=== PATIENT | female | born 1965 | race African-American/Black ===

== ENCOUNTER 2024-06-29 16:55 | Emergency (ER) | payer SELFPAY ==
[~2024-06-29] VITALS: Ht 157.5 cm; Wt 85.0 kg
[2024-06-29 17:02] VITALS: TEMP 98.6
[2024-06-29 19:44] LABS: BASO % 0.5 % (0.0-2.0); EOS # 0.2 K/mm3 (0.0-0.7); EOS % 3.8 % (0.0-4.0); GRAN # 3.2 K/mm3 (1.4-6.5); GRAN % 49.7 % (42.2-75.2); HEMATOCRIT 41.9 % (37.0-47.0); HEMOGLOBIN 13.3 g/dl (12.5-16.0); LYMPH # 2.3 K/mm3 (1.2-3.4); LYMPH % 36.6 % (20.0-51.0); MEAN CELL VOLUME 86 fl (80.0-100.0); MEAN CORPUSCULAR HEMOGLOBIN 27 pg (27-31); MEAN CORPUSCULAR HGB CONC 32 g/dl (33.0-37.0); MEAN PLATELET VOLUME 9.1 fl (7.4-10.4); MONO # 0.6 K/mm3 (0.1-0.6); MONO % 8.6 % (1.7-9.3); PLATELET COUNT 381 K/mm3 (130-400); RED BLOOD COUNT 4.87 M/mm3 (4.10-5.30); REDCELL DISTRIBUTION WIDTH-CV 13.6 % (11.5-14.5)
[2024-06-29 19:52] LABS: URINE APPEARANCE CLOUDY (CLEAR/HAZY); URINE BLOOD NEGATIVE (NEGATIVE); URINE COLOR YELLOW (YELLOW); URINE GLUCOSE NEGATIVE (NEGATIVE); URINE KETONE NEGATIVE (NEGATIVE); URINE NITRATE POSITIVE (NEGATIVE); URINE PROTEIN(semi-quant) NEGATIVE (NEGATIVE); URINE UROBILINOGEN 0.2 E.U/dL (0.2-1.0)
[2024-06-29 19:56] LABS: COLLECTION METHOD CLEAN CATCH
[2024-06-29 19:58] LABS: ALANINE AMINOTRANSFERASE 15 U/L (0-55); ALBUMIN 4.3 g/dL (3.5-5.0); ALKALINE PHOSPHATASE 78 U/L (40-150); ANION GAP 14 mmol/L (7-16); AST,SGOT 20 U/L (5-34); BILIRUBIN,TOTAL 0.3 mg/dL (0.2-1.2); BLOOD UREA NITROGEN 10 mg/dL (10-20); CALCIUM 10.2 mg/dL (8.4-10.2); CHLORIDE 104 mEq/L (98-107); CREATININE, serum 0.85 mg/dL (0.57-1.11); GLUCOSE 135 mg/dL (70-99); LIPASE 94 U/L (8-78); POTASSIUM 3.2 mEq/L (3.5-4.5); SODIUM 141 mEq/L (136-145); TOTAL PROTEIN 8.6 g/dl (6.2-8.1)
[2024-06-29 20:08] LABS: TROPONIN-I < 0.010 ng/mL (0.00-0.033)
[2024-06-29] MEDS ORDERED: Nitrofurantoin (Mono/Macro) 100 MG CAP PO ONE (21:15)
[2024-06-29] MEDS ORDERED: CEFTIN500 MG PO (21:17)
[2024-06-29] MEDS ORDERED: cefTRIAXone 1 G in Water For Injection,Sterile 10 ML IV ONE (21:30)
[2024-06-29 22:20] VITALS: BP 153/80; PULSE 64
== END 2024-06-29 22:21 | disposition home or self-care (01) ==
LOC: COL.ER 16:55
PROVIDERS: Nurse Practitioner Primary Care
DX: R00.2 Palpitations (principal); N39.0 Urinary tract infection, site not specified; Z88.0 Allergy status to penicillin
CPT/HCPCS: J0696